=== PATIENT | female | born 1985 | race Hispanic/Latino ===

== ENCOUNTER 2018-04-29 22:11 | Emergency (ER) | payer SELFPAY ==
[2018-04-29] MEDS ORDERED: Bupivacaine 0.5% 10 ML VIAL ONE (22:38)
== END 2018-04-29 23:07 | disposition home or self-care (01) ==
LOC: ERS 22:11
DX: G89.18 Other acute postprocedural pain (principal); K08.89 Other specified disorders of teeth and supporting structures; F41.9 Anxiety disorder, unspecified; F31.9 Bipolar disorder, unspecified; F17.210 Nicotine dependence, cigarettes, uncomplicated; D64.9 Anemia, unspecified
CPT/HCPCS: 64400; J3490

== ENCOUNTER 2018-09-11 20:13 | Emergency (ER) | payer SELFPAY ==
[2018-09-11] MEDS ORDERED: Naloxone HCl 0.4 mg/ml Vial ONE ×3 (20:26→21:14)
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
--- NOTE | 2018-09-11 20:43 | CT ---
CT CERVICAL SPINE NONCONTRAST: Date: 09/11/2018 HISTORY: cervical trauma FINDINGS: Alignment is normal. Vertebral body heights are maintained. No prevertebral soft tissue swelling. No perched or jumped facets. No significant degenerative disc disease or significant degenerative facet disease identified. No fracture or any other major osseous abnormality. IMPRESSION: Normal
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
[2018-09-11 20:56] LABS: Hemoglobin 9.9 g/dL (12.0-16.0); Mean Corpuscular Hemoglobin 22.9 pg (27.0-31.0); Mean Corpuscular Volume 73.8 fL (78.0-98.0); Platelet Count 439 thou/uL (130-400); RBC Distribution Width 14.8 % (11.5-14.5); Red Blood Cell (RBC) Count 4.32 mill/uL (4.20-5.40)
[2018-09-11 20:57] LABS: ALT (SGPT) 15 U/L (8-55); AST (SGOT) 24 U/L (5-34); Acetaminophen Less than 6.0 mcg/mL (10.0-30.0); Alcohol Less than 10 mg/dL (Less than 10); Alkaline Phosphatase 57 U/L (40-150); Anion Gap 13 mmol/L (10-20); BUN (Urea Nitrogen) 13 mg/dL (7.0-18.7); Bilirubin, Total 0.3 mg/dL (0.2-1.2); Calc. Creatinine Clearance 0 mL/min (70-130); Calcium 9.4 mg/dL (7.8-10.44); Carbon Dioxide 22 mmol/L (22-29); Chloride 106 mmol/L (98-107); Estimated GFR-MDRD 84; Globulin 2.9 g/dL (2.4-3.5); Glucose 95 mg/dL (70-105); Potassium 3.5 mmol/L (3.5-5.1); Protein, Total 6.9 g/dL (6.0-8.3); Salicylate Less than 8.0 mg/dL (15.0-30.0); Sodium 137 mmol/L (136-145)
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
[2018-09-11 21:30] LABS: Band 2 % (5-11); Eosinophils 6 % (0-10); Hypochromia SLIGHT = 6-15 cells (100X) (0-5/hpf); Lymphocytes 36 % (21-51); MDiff Complete? YES; Metamyelocyte 1 % (0-0); Microcytosis SLIGHT = 6-15 cells (100X) (0-5/hpf); Monocytes 8 % (0-10); Neutrophil 47 % (42-75); White Blood Cell (WBC) Count 8.6 thou/uL (4.8-10.8)
[2018-09-11] MEDS ORDERED: Bacitracin Zinc 1 Packet ONE (21:59)
[2018-09-11] MEDS ORDERED: Adacel (T-DAP) 0.5 ML SYRINGE ONE (21:59)
== END 2018-09-11 22:13 | disposition home or self-care (01) ==
LOC: ERS 20:13
DX: S80.212A Abrasion, left knee, initial encounter (principal); S80.211A Abrasion, right knee, initial encounter; S80.812A Abrasion, left lower leg, initial encounter; S60.511A Abrasion of right hand, initial encounter; D64.9 Anemia, unspecified; F41.9 Anxiety disorder, unspecified; F31.9 Bipolar disorder, unspecified; F17.210 Nicotine dependence, cigarettes, uncomplicated; V49.9XXA Car occupant (driver) (passenger) injured in unspecified traffic accident, initial encounter
CPT/HCPCS: 36415; 70450; 70486; 71045; 72125; 80053; 80307; 85025; 86850; 86900; 86901; 90471; 90715; 96374; 96376; 99292; G0390; J2310

== ENCOUNTER 2019-04-16 13:44 | Day surgery (SDC) | payer SELFPAY ==
[~2019-04-16 13:44] MED LIST: Dexamethasone 20 MG/5 ML VIAL ONE; Lidocaine 1% PF 5 ML VIAL ONE; Ondansetron PF 4 MG/2 ML Vial ONE; PROPOFOL 200 MG/20 ML VIAL ONE; Rocuronium Bromide 10 MG/ML (10ML VIAL) ONE
[2019-04-16] MEDS ORDERED: Bupivacaine PF 0.5% 30 ML VIAL ONE (13:56)
[2019-04-16] MEDS ORDERED: Lidocaine 1% w/Epinephrine 1:100K 20 ML VIAL ONE (13:56)
[2019-04-16] MEDS ORDERED: Meperidine HCl/PF 25 MG/ML VIAL ONE (14:05)
[2019-04-16] MEDS ORDERED: Fentanyl 100 MCG/2 ML VIAL ONE (14:05)
[2019-04-16] MEDS ORDERED: Famotidine/PF 20 mg/2ml Vial ONE (14:06)
[2019-04-16] MEDS ORDERED: Ketorolac Tromethamine 30 MG/ML VIAL ONE (14:11)
--- NOTE | 2019-04-16 14:31 | HP ---
HISTORY OF PRESENT ILLNESS: Brittany Cobb is a 33-year-old female, transferred from [facility] for acute cholecystitis and cholelithiasis. The patient was admitted having episodes of pain for some time, but this has gotten worse and more persistent. In [facility], ultrasound revealed gallstones and normal bile duct caliber. Normal liver function tests. White count was slightly elevated. The patient received Levaquin 500 IV and transferred to this facility for outpatient cholecystectomy. ALLERGIES: NONE. SOCIAL HISTORY: Tobacco, 1/2 to 1 pack per day. Alcohol, socially. MEDICATIONS: None routinely. PAST SURGICAL HISTORY: Ovarian cyst removal. PAST MEDICAL HISTORY: Chronic anemia. She has been having a hemoglobin of 8 to 9 since 2013. The patient is unemployed. She lives with her boyfriend. He cleans windows. There is nobody with her today. She smokes marijuana frequently. Drinks alcohol occasionally. Has injected heroin. Has a history of heroin use, last used injection 2 months ago. She smokes meth, last consumed 2 days ago. She is trying to quit. REVIEW OF SYSTEMS: Noncontributory. FAMILY HISTORY: Noncontributory. PHYSICAL EXAMINATION: VITAL SIGNS: Heart rate 88, respiratory rate 18, blood pressure 130/64. HEAD, EARS, EYES, NOSE, AND THROAT: Unremarkable. LUNGS: Clear to auscultation. CARDIAC: Regular rate and rhythm without murmur or gallop. ABDOMEN: Tender in the right upper quadrant with guarding and rebound. Positive Bose sign. EXTREMITIES: Unremarkable. No ankle edema. LABORATORY DATA: Hemoglobin 8.7, white count slightly elevated. Liver function tests are normal. ASSESSMENT AND PLAN: 1. Cholecystitis and cholelithiasis. She has positive Bose sign. Tender in the right upper quadrant. We would recommend laparoscopic video cholecystectomy. Risks of infection, bleeding, visceral and biliary injury were discussed. Questions were answered. 2. Drug use. Job ID: [id number]
[2019-04-16] MEDS ORDERED: Promethazine HCl 25 MG/ML VIAL SLOW IVP PRN (14:45)
[2019-04-16] MEDS ORDERED: Morphine Sulfate 2 MG/ML SYRINGE SLOW IVP PRN (14:45)
[2019-04-16] MEDS ORDERED: Ondansetron HCl/PF 4 MG/2 ML Vial IVP PRN (14:45)
[2019-04-16] MEDS ORDERED: HYDROmorphone 2 MG/ML VIAL SLOW IVP PRN (14:45)
[2019-04-16] MEDS ORDERED: Meperidine HCl/PF 25 MG/ML VIAL SLOW IVP PRN (14:45)
[2019-04-16] MEDS ORDERED: SUGAMMADEX SODIUM 200 MG/2 ML VIAL ONE (14:46)
--- NOTE | 2019-04-16 16:00 | OP ---
DATE OF PROCEDURE: 04/16/2019 PREOPERATIVE DIAGNOSES: Acute chronic cholecystitis, cholelithiasis, and chronic anemia. POSTOPERATIVE DIAGNOSES: Acute chronic cholecystitis, cholelithiasis, and chronic anemia. PROCEDURE PERFORMED: Laparoscopic video cholecystectomy. ANESTHESIA: General, local 0.5% Marcaine 30 mL mixed with 1% xylocaine with epinephrine 30 mL, 40 mL mixture used. DESCRIPTION OF PROCEDURE: The patient was taken to the operating room, in supine position, abdomen was prepared with ChloraPrep and draped in routine fashion. Local anesthetic mixture was infiltrated into the skin and subcutaneous tissue about the operative site. Infraumbilical incision was made. Pneumoperitoneum to 15 mmHg was obtained with a Veress needle, replaced with a 5 port, video laparoscope inserted. Right subxiphoid incision was made and 11 port was placed. Right subcostal incision was made at midclavicular entrance line and the 5 ports placed. Liver appeared to be normal. Fundus of the gallbladder was grasped, reflected, and cephalad. Infundibulum was grasped laterally. Cystic artery and duct dissected free. Critical view obtained. Cystic artery and duct double clipped proximally, divided, gallbladder dissected free from liver bed obtaining good hemostasis prior to division of the final peritoneal attachments. Gallbladder and contents removed, submitted to Pathology. Good hemostasis assured. Irrigant and pneumoperitoneum were evacuated. All instruments removed. All skin incisions were approximated with interrupted subdermal 4-0 Monocryl and [place] glue applied. Job ID: [id number]
[2019-04-16] MEDS ORDERED: Morphine 2 MG/ML SYRINGE ONE (16:27)
[2019-04-16] MEDS ORDERED: HYDROcodone/Acetaminophen 5/325 mg Tablet ONE ×2 (17:19→17:57)
== END 2019-04-16 18:30 | disposition home or self-care (01) ==
LOC: SDC 13:44
PROVIDERS: ATTEND Specialist
PROC: 0FT44ZZ Resection of Gallbladder, Percutaneous Endoscopic Approach (ICD-10-PCS; principal; 2019-04-16)
DX: K80.12 Calculus of gallbladder with acute and chronic cholecystitis without obstruction (principal); D64.9 Anemia, unspecified; F17.210 Nicotine dependence, cigarettes, uncomplicated
CPT/HCPCS: 88304; J0131; J1100; J1885; J2001; J2175; J2270; J2405; J2704; J3010; S0020; S0028

== ENCOUNTER 2020-09-18 15:13 | Emergency (ER) | payer SELFPAY ==
[~2020-09-18 15:13] MED LIST changes: -Dexamethasone 20 MG/5 ML VIAL ONE; +Iopamidol-370 76% 500 ML 1 ML ONE; -Lidocaine 1% PF 5 ML VIAL ONE; -Ondansetron PF 4 MG/2 ML Vial ONE; -PROPOFOL 200 MG/20 ML VIAL ONE; -Rocuronium Bromide 10 MG/ML (10ML VIAL) ONE
[2020-09-18] MEDS ORDERED: Lidocaine 1% w/Epinephrine 1:100K 20 ML VIAL ONE ×2 (17:34→17:35)
[2020-09-18] MEDS ORDERED: Boostrix 0.5 ML (Tdap) VIAL ONE (17:53)
[2020-09-18 18:00] LABS: #Basophils 0.1 thou/uL (0.0-0.2); #Eosinphils 0.4 thou/uL (0.0-0.7); #Lymphocytes 4.6 thou/uL (1.20-3.40); #Monocytes 1.2 thou/uL (0.11-0.59); %Basophils 0.6 % (0.0-1.0); %Eosinophils 2.4 % (0.0-10.0); %Lymphocytes 24.8 % (21.0-51.0); %Monocytes 6.7 % (0.0-10.0); %Neutrophils 65.6 % (42.0-75.0); Hemoglobin 8.3 g/dL (12.0-16.0); Mean Corpuscular HGB CONC 30.5 g/dL (32.0-36.0); Mean Corpuscular Hemoglobin 19.2 pg (27.0-31.0); Mean Platelet Volume 9.1 fL (7.4-10.4); Platelet Count 563 thou/uL (130-400); RBC Distribution Width 15.6 % (11.5-14.5); Red Blood Cell (RBC) Count 4.34 mill/uL (4.20-5.40); White Blood Cell (WBC) Count 18.4 thou/uL (4.8-10.8)
[2020-09-18 18:15] LABS: BHCG - Serum Negative (NEGATIVE); Pregs Control Background? CLEAR/WHITE (CLR/WHITE); Pregs Control Bar Appear? YES (CONTROL BAR)
[2020-09-18 18:22] LABS: ALT (SGPT) 17 U/L (8-55); AST (SGOT) 19 U/L (5-34); Albumin 4.1 g/dL (3.5-5.0); Alkaline Phosphatase 83 U/L (40-110); Anion Gap 11 mmol/L (10-20); Anisocytosis SLIGHT = 6-15 cells (100X) (0-5/hpf); BUN (Urea Nitrogen) 11 mg/dL (7.0-18.7); Bilirubin, Total 0.3 mg/dL (0.2-1.2); Calc. Creatinine Clearance 0 mL/min (70-130); Calcium 10.1 mg/dL (7.8-10.44); Carbon Dioxide 24 mmol/L (22-29); Chloride 107 mmol/L (98-107); Elliptocytes SLIGHT = 2-5 cells (100X) (0-1/hpf); Globulin 3.5 g/dL (2.4-3.5); Glucose 87 mg/dL (70-105); Hypochromia MODERATE=16-30 cells (100X) (0-5/hpf); Lipase 39 U/L (8-78); MDiff Complete? YES; Microcytosis MODERATE=15-30 cells (100X) (0-5/hpf); Platelet Morphology Comment Appears Increased; Polychromasia SLIGHT = 2-3 cells (100X) (0-2/hpf); Potassium 4.2 mmol/L (3.5-5.1); Protein, Total 7.6 g/dL (6.0-8.3); Reflex for Review?? YES; Schistocytes SLIGHT = 2-5 cells (100X) (0-1/hpf); Sodium 138 mmol/L (136-145); Target Cells MODERATE= 6-15 cells (100X) (0-1/hpf); Tear Drops SLIGHT = 2-5 cells (100X) (0-1/hpf)
[2020-09-18] MEDS ORDERED: Ketorolac Tromethamine 30 MG/ML VIAL ONE (19:09)
== END 2020-09-18 19:29 | disposition home or self-care (01) ==
LOC: ERS 15:13
DX: S01.512A Laceration without foreign body of oral cavity, initial encounter (principal); Y09 Assault by unspecified means; F17.210 Nicotine dependence, cigarettes, uncomplicated
CPT/HCPCS: 12011; 70450; 70486; 71260; 74177; 80053; 83690; 84703; 85025; 85060; 90471; 90715; J1885; Q9967

== ENCOUNTER 2021-05-08 01:43 | Emergency (ER) | payer SELFPAY ==
[2021-05-08] MEDS ORDERED: Mag-Al 1200 mg/1200 mg/30 ML UDCUP ONE (02:32)
[2021-05-08] MEDS ORDERED: Lidocaine Viscous Sol 2% 15 ml UD Cup ONE (02:32)
[2021-05-08 03:20] LABS: ALT (SGPT) 16 U/L (8-55); AST (SGOT) 18 U/L (5-34); Alkaline Phosphatase 62 U/L (40-110); Anion Gap 15 mmol/L (10-20); BUN (Urea Nitrogen) 9 mg/dL (7.0-18.7); Bilirubin, Total 0.2 mg/dL (0.2-1.2); Calc. Creatinine Clearance 0 mL/min (70-130); Calcium 9.1 mg/dL (7.8-10.44); Carbon Dioxide 18 mmol/L (22-29); Chloride 108 mmol/L (98-107); Globulin 3.1 g/dL (2.4-3.5); Glucose 82 mg/dL (70-105); Potassium 3.6 mmol/L (3.5-5.1); Protein, Total 7.1 g/dL (6.0-8.3); Sodium 137 mmol/L (136-145)
[2021-05-08 03:30] LABS: Hypochromia SLIGHT = 6-15 cells (100X) (0-5/hpf); Lymphocytes 44 % (21-51); MDiff Complete? YES; Mean Corpuscular Hemoglobin 15.9 pg (27.0-31.0); Mean Corpuscular Volume 61.4 fL (78.0-98.0); Mean Platelet Volume 11.1 fL (7.4-10.4); Metamyelocyte 1 % (0-0); Microcytosis SLIGHT = 6-15 cells (100X) (0-5/hpf); Monocytes 10 % (0-10); Neutrophil 45 % (42-75); Ovalocytes SLIGHT = 2-5 cells (100X) (0-1/hpf); Platelet Count 310 thou/uL (130-400); Platelet Morphology Comment Appears Adequate; RBC Distribution Width 16.2 % (11.5-14.5); Red Blood Cell (RBC) Count 5.62 mill/uL (4.20-5.40); White Blood Cell (WBC) Count 8.5 thou/uL (4.8-10.8)
[2021-05-08 05:01] LABS: Troponin I Less than 0.010 ng/mL (< 0.028)
== END 2021-05-08 04:51 | disposition home or self-care (01) ==
LOC: ERS 01:43
DX: R07.89 Other chest pain (principal); F17.210 Nicotine dependence, cigarettes, uncomplicated
CPT/HCPCS: 36415; 71045; 80053; 84484; 85025; 93005